=== PATIENT | female | born 1985 | race Caucasian/White ===

== ENCOUNTER 2022-04-01 11:14 | Inpatient (IN) | payer OTHER ==
[~2022-04-01] VITALS: Ht 167.6 cm; Wt 58.3 kg
[2022-04-01 11:23] VITALS: BP 103/66
[2022-04-01 11:31] LABS: BASO # 0.1 10*3/uL (0.0-0.1); BASO % 1.2 % (0.0-1.0); EOS # 1.2 10*3/uL (0.0-0.4); EOS % 12.6 % (1.0-4.0); HEMATOCRIT 43.6 % (37.0-47.0); LYMPH % 21.3 % (27.0-41.0); MEAN CELL VOLUME 95.2 fl (81.0-99.0); MEAN CORPUSCULAR HGB 31.4 pg (27.0-31.0); MEAN PLATELET VOLUME 9.8 fl (9.6-12.3); MONO # 0.7 10*3/uL (0.1-1.0); MONO % 7.3 % (3.0-9.0); NEUT # 5.5 10*3/uL (2.3-7.9); NEUT % 57.4 % (47.0-73.0); PLATELET COUNT AUTOMATED 306 10*3/uL (130-400); RED BLOOD COUNT 4.58 10*6/uL (4.10-5.10); RED CELL DISTRI WIDTH 12.7 % (0-14.5); WHITE BLOOD COUNT 9.6 10*3/uL (4.8-10.8)
[2022-04-01] MEDS ORDERED: DICYCLOMINE HYD20 MG PO (11:32)
[2022-04-01] MEDS ORDERED: BUPRENORPHINE-1 EACH SL (11:32)
[2022-04-01] MEDS ORDERED: 'CLONIDINE0.1 MG PO (11:32)
[2022-04-01] MEDS ORDERED: GOOD NEIGHBOR L10 MG PO (11:33)
[2022-04-01] MEDS ORDERED: MELATONIN5 M7 PO (11:34)
[2022-04-01] MEDS ORDERED: VISTARIL50 MG PO (11:35)
[2022-04-01] MEDS ORDERED: ZOFRAN4 MG PO (11:35)
[2022-04-01] MEDS ORDERED: MIRTAZAPINE7.5 MG PO (11:35)
[2022-04-01 11:44] LABS: ACT PARTIAL THROMBO TIME 29.1 SECONDS (20.0-32.1)
[2022-04-01 11:46] LABS: ALKALINE PHOSPHATASE 82 U/L (45-117); BUN 14 mg/dl (7-24); CHLORIDE 106 mmol/L (98-107); SGOT/AST 17 IU/L (3-35); SGPT/ALT 27 U/L (12-78); SODIUM 140 mmol/L (136-145); TOTAL PROTEIN 6.9 gm/dL (6.4-8.2)
[2022-04-01 12:00] VITALS: BP 96/56
[2022-04-01 13:25] VITALS: BP 90/60
[2022-04-01] MEDS ORDERED: QUETIAPINE FUM100 M3 PO (15:27)
[2022-04-01] MEDS ORDERED: ARIPIPRAZOLE10 MG PO (15:28)
[2022-04-01 16:00] VITALS: BP 101/57
[2022-04-01 20:00] VITALS: BP 104/63
[2022-04-02] VITALS: BP 104/63
[2022-04-02 05:33] LABS: BUN 16 mg/dl (7-24); CHLORIDE 108 mmol/L (98-107); POTASSIUM 4.1 mmol/L (3.5-5.1); SODIUM 139 mmol/L (136-145)
[2022-04-02 05:36] LABS: ALKALINE PHOSPHATASE 64 U/L (45-117); CHOLESTEROL 152 mg/dL (<200); CREATININE 0.59 mg/dL (0.55-1.02); LDL CHOLESTEROL 52 mg/dL (9-159); SGOT/AST 12 IU/L (3-35); SGPT/ALT 23 U/L (12-78); TOTAL PROTEIN 6.4 gm/dL (6.4-8.2); TRIGLYCERIDES 82 mg/dl (<150)
[2022-04-02 05:42] LABS: FREE T4 1.02 ng/dl (0.76-1.46); THYROID STIM HORMONE (HS) 0.227 uIU/ml (0.358-4.75)
[2022-04-02 06:07] LABS: BASO # 0.1 10*3/uL (0.0-0.1); BASO % 0.5 % (0.0-1.0); EOS % 0.3 % (1.0-4.0); HEMATOCRIT 38.5 % (37.0-47.0); LYMPH # 1.7 10*3/uL (1.3-4.4); LYMPH % 15.8 % (27.0-41.0); MEAN CELL VOLUME 94.4 fl (81.0-99.0); MEAN CORPUSCULAR HGB 31.6 pg (27.0-31.0); MEAN CORPUSCULAR HGB CONC 33.5 g/dl (33.0-37.0); MONO # 0.8 10*3/uL (0.1-1.0); MONO % 7.3 % (3.0-9.0); NEUT # 8.4 10*3/uL (2.3-7.9); NEUT % 75.8 % (47.0-73.0); PLATELET COUNT AUTOMATED 315 10*3/uL (130-400); RED BLOOD COUNT 4.08 10*6/uL (4.10-5.10); RED CELL DISTRI WIDTH 12.6 % (0-14.5)
[2022-04-02 08:00] VITALS: BP 128/69
[2022-04-02 12:00] VITALS: BP 110/64
== END 2022-04-02 16:19 | disposition left against medical advice (07) | DRG 141 ==
LOC: ED 11:14 → EDHOLD 12:23 → 4E 13:17
PROVIDERS: Internal Medicine; Student in an Organized Health Care Education/Training Program; ADMIT Internal Medicine; ATTEND Internal Medicine
DX: J45.901 Unspecified asthma with (acute) exacerbation (principal); J18.9 Pneumonia, unspecified organism; J96.01 Acute respiratory failure with hypoxia; F14.10 Cocaine abuse, uncomplicated; F17.210 Nicotine dependence, cigarettes, uncomplicated; D72.829 Elevated white blood cell count, unspecified; R73.9 Hyperglycemia, unspecified; E83.41 Hypermagnesemia; E83.51 Hypocalcemia; E44.0 Moderate protein-calorie malnutrition; Z53.29 Procedure and treatment not carried out because of patient's decision for other reasons; Z82.49 Family history of ischemic heart disease and other diseases of the circulatory system; Z68.20 Body mass index [BMI] 20.0-20.9, adult